=== PATIENT | female | born 1960 | race Caucasian/White ===

== ENCOUNTER 2024-04-20 12:12 | Inpatient (IN) | payer OTHER, SELFPAY ==
[2024-04-18] VITALS (11 sets, daily range): BP systolic 133–183; BP diastolic 77–112; PULSE 103–117; BMI 32.5; BMI 31.9
--- NOTE | 2024-04-18 01:26 | ED.GENMED ---
History of Present Illness
General
Chief Complaint: Alcohol Problem
Time Seen by Provider: 04/18/24 01:26
History of Present Illness
History of Present Illness:
HPI: The patient presents with a generalized unwell feeling. She states she was drinking alcohol over the weekend and also drank alcohol today. She states she has had alcohol withdrawal in the past. She also has history of low sodium. She was
admitted a few years ago and this feels very similar to that episode and she was also dehydrated at that time.
EXAM:
GENERAL: The patient appears to be in mild distress
HEENT: Moist oral mucosa
CARDIOVASCULAR: No murmurs, tachycardic heart rate, regular rhythm, No chest wall tenderness
PULMONARY: No respiratory distress, breath sounds are clear and equal
ABDOMEN: Soft with no peritoneal signs, no tenderness
NEUROLOGIC: Excellent strength all extremities, no coordination deficits, no asterixis
PSYCHIATRIC: Appropriate mental status, normal insight and judgement
EXTREMITIES: Nontender, no edema, moves all extremities equally
SKIN: Some facial erythema noted
TIME OF INITIAL ENCOUNTER: 1:30 AM
NUMBER AND COMPLEXITY OF PROBLEMS ADDRESSED AT THE ENCOUNTER
� Chronic conditions affecting care: Pressure, asthma, GERD, history of alcohol abuse but she tells me she does not drink on a daily basis
� Acute Exacerbation and/or Progression of Chronic Illness: This is an acute problem
� Differential Diagnosis includes: Alcohol withdrawal, impending DTs, hyponatremia, dehydration, CURTIS
AMOUNT AND/OR COMPLEXITY OF DATA TO BE REVIEWED AND ANALYZED
� I performed an independent evaluation of and my interpretation is:
EKG:
CT:
X-rays:
Laboratory Studies: White count 8.7, hemoglobin 15.5, MCV 85.7, platelets normal
Other:
� Review of other/old records: I reviewed records. The patient was admitted here in November 2018 with alcoholic gastritis and acute hyponatremia and had a sodium as low as 122 at that time.
� Clinical information was obtained by an independent historian: I spoke to at bedside
� Prescriptions/Medications Considered but not given:
� Further testing considered but not performed:
RISK OF COMPLICATIONS AND/OR MORBIDITY OR MORTALITY OF PATIENT MANAGEMENT
� Social determinants of health affecting care: History of alcohol abuse but she tells me she does not drink on a daily basis
� Discussion with other providers: Hospitalist, Dr. Daniel for admission at 2:30 AM
� Escalation of care including admission/observation vs risk of discharge considered: The patient CIWA score is 9. I have given her Ativan. She was also given IV fluids. Hemoglobin 15.5�she may be somewhat dehydrated.
Although MCV is normal, it is documented in her chart that she has a history of alcohol abuse. Although sodium is only slightly low which I suspect is related to a combination of dehydration and alcoholism, she also has a low potassium. I have
ordered both saline and potassium. She has been feeling nauseated and I gave her Zofran.
Past History
Past History
ED Past Medical History: Asthma, GERD, HTN and Other (IBS, frequent UTIs)
Social History
Tobacco: Non-smoker
Alcohol: Occasional (in)
Drug: None
Personal:
Phy Exam
Physical Exam
Physical Exam:
See HPI
Scores
Withdrawal Assessment of Alcohol
Withdrawal Assessment Completed?: Yes
Nausea and Vomiting: Mild nausea with no vomiting
Tactile Disturbances: Mild itching, pins and needles, burning or numbness
Tremor: Not visible, but can be felt fingertip to fingertip
Auditory Disturbances: Not present
Paroxysmal Sweats: No sweat visible
Visual Disturbances: Not present
Anxiety: Mild anxiety
Headache, Fullness in Head: Very mild
Agitation: Moderately fidgety and restless
Orientation and clouding of sensorium: Oriented and can do serial additions
Total CIWA Score: 10
Alcohol Withdrawal Medication Recommendation: Equal to MSAS Score 5-7. Lorazepam 1mg IV or PO NOW & re-assess q2hrs
Course
Orders/Labs/Results
Orders:
Orders
04/18/24 01:26
0.9% Sodium Chloride 1000 ml [Nss] 1,000 ml IV BOLUS
04/18/24 01:32
Ondansetron Injectable [Zofran] 4 mg IV NOW STA
04/18/24 01:33
Lorazepam [Ativan] 1 mg IV NOW STA
04/18/24 01:39
Famotidine [Pepcid] 20 mg IV NOW STA
04/18/24 01:47
Alcohol Urgent
Complete Blood Count/With Diff Urgent
Comprehensive Metabolic Panel Urgent
Lipase Urgent
Magnesium Urgent
04/18/24 02:12
Potassium Chloride [KCl] 40 meq 0.9% Sodium Chloride 250 ml [Nss] 250 ml IV NOW
04/18/24 02:20
Potassium Chloride [KCl] 40 meq 0.9% Sodium Chloride 250 ml [Nss] 250 ml IV NOW
Abnormal Lab Results
04/18/24
01:47
MCH 32.0 H pg
(27.0-31.0)
MCHC 37.3 H g/dL
(33.0-37.0)
RDW 11.2 L %
(11.5-14.5)
Absolute Monos (auto) 1.2 H 10^3/uL
(0.1-0.6)
Lymphocytes % 16.3 L %
(20.5-51.1)
Monocytes % 13.6 H %
(1.7-9.3)
Sodium 127 L mmol/L
(135-145)
Potassium 3.2 L mmol/L
(3.5-5.1)
Chloride 86 L mmol/L
(98-107)
Carbon Dioxide 20 L mmol/L
(22-30)
Creatinine 0.5 L mg/dL
(0.6-1.0)
Glucose 126 H mg/dl
(70-99)
Calcium 10.4 H mg/dl
(8.4-10.2)
AST 44 H U/L
(14-36)
ALT 48 H U/L
(0-35)
Alkaline Phosphatase 139 H U/L
(38-126)
Albumin 5.1 H g/dl
(3.5-5.0)
04/18/24 01:47
04/18/24 01:47
Vital Signs
Initial and Last Documented VS:
Initial Vital Signs
Temp Pulse Resp BP Pulse Ox
100.0 F 119 20 183/112 95
04/18/24 00:36 04/18/24 00:36 04/18/24 00:36 04/18/24 00:36 04/18/24 00:36
Last Documented Vital Signs
Temp Pulse Resp BP Pulse Ox
98.2 F 105 15 168/83 96
04/18/24 01:32 04/18/24 01:32 04/18/24 01:32 04/18/24 01:32 04/18/24 01:32
*Critical Care Note
Total Time (30-74mins, 75-104mins- exclusive of procedures): Not Applicable
ED Attending Note
-
Portions of this chart may have been created with voice recognition software.� Occasional wrong word or��sound alike� substitutions may have occurred due to the inherent limitations of voice recognition software.
Discharge Plan
Departure
Patient Disposition: Admit
Date of Disposition: 04/18/24
Time of Disposition: 02:24
Presentation/result/management discussed w/ accepting MD/DO: Hospitalist
Discharge Problem:
Acute hyponatremia
Prescriptions:
No Action
amlodipine 10 mg Tablet
10 mg PO DAILY
omeprazole 20 mg Capsule,Delayed Release(Dr/Ec)
20 mg PO DAILY
loratadine [Claritin] 10 mg Tablet
10 mg PO DAILY
rosuvastatin [Crestor] 5 mg Tablet
5 mg PO HS
duloxetine [Cymbalta] 30 mg Capsule,Delayed Release(Dr/Ec)
30 mg PO DAILY
Interventions
Interventions:
*Risk Screen - Suicide Last Done: 04/18/24 00:36
*General Assessment Last Done: 04/18/24 00:36
*Neglect/Abuse Screening Last Done: 04/18/24 01:45
ED- Fall Risk Assessment Last Done: 04/18/24 02:01
*ED COVID-19 Vaccine History Last Done: 04/18/24 02:01
ED- Neurological Assessment Last Done: 04/18/24 01:45
ED-Psychological Assessment Last Done: 04/18/24 01:45
Discharge Date and Time
Print Language: KAZAKH
[2024-04-18] MEDS: ZOFRAN 4 MG IV (01:52)
[2024-04-18] MEDS: ATIVAN 1 MG IV (01:52)
[2024-04-18 01:53] LABS: % Basophils 0.5 % (0-2); % Eosinophils 2.7 % (0-6); % Immature Granulocytes 0.5 % (0-0.5); % Lymphocytes 16.3 % (20.5-51.1); % Monocytes 13.6 % (1.7-9.3); % Neutrophils 66.4 % (42.2-75.2); Absolute Eosinophils 0.2 10^3/uL (0-0.7); Absolute Lymphocytes 1.4 10^3/uL (1.2-3.4); Absolute Monocytes 1.2 10^3/uL (0.1-0.6); Absolute Neutrophils 5.8 10^3/uL (1.4-6.5); Hematocrit 41.5 % (37.0-47.0); Hemoglobin 15.5 g/dL (12.0-16.0); Mean Corp Hgb Conc. 37.3 g/dL (33.0-37.0); Mean Corpuscular Volume 85.7 fL (81.0-99.0); Mean Platelet Volume 9.4 fL (7.4-10.4); Nucleated Red Blood Cells % 0 %; Platelet Count 293 10^3/uL (130-400); Red Blood Cell Count 4.84 10^6/uL (4.20-5.40); Red Cell Dist. Width 11.2 % (11.5-14.5); White Blood Cell Count 8.7 10^3/uL (4.8-10.8)
[2024-04-18] MEDS: PEPCID 20 MG IV (01:53)
[2024-04-18] MEDS: NSS 1000 IV ×4 (01:53→23:09)
[2024-04-18 02:08] LABS: ALT (SGPT) 48 U/L (0-35); AST (SGOT) 44 U/L (14-36); Albumin 5.1 g/dl (3.5-5.0); Alcohol 18 mg/dl; Alkaline Phosphatase 139 U/L (38-126); Blood Urea Nitrogen 7 mg/dl (7-17); Calcium 10.4 mg/dl (8.4-10.2); Carbon Dioxide 20 mmol/L (22-30); Chloride 86 mmol/L (98-107); Estimated Creatinine Clearance 92 ml/min; Glucose 126 mg/dl (70-99); Lipase 65 U/L (23-300); Magnesium 1.6 mg/dl (1.6-2.3); Potassium 3.2 mmol/L (3.5-5.1); Sodium 127 mmol/L (135-145); Total Bilirubin 1.2 mg/dl (0.2-1.3); Total Protein 7.8 g/dl (6.3-8.2); eGFR > 60.00
[2024-04-18] MEDS: KCL 270 MEQ IV (02:44)
--- NOTE | 2024-04-18 03:59 | HPS.HSE ---
Family Physician
-
Family Physician: Delaney Milligan
Chief Complaint
-
Nausea, anxiety and lightheadedness
History of Present Illness
This is 63-year-old with past medical history of hypertension, anxiety, hyperlipidemia and history of alcohol dependence who presents to the emergency department with anxiety, lightheadedness dizziness and nausea in the setting of acute alcohol
binge.
Patient reports that she drinks alcohol on the weekends. She reported that on Wednesday she had at least 4 cans of light beer and likely significantly more than that as she was not doing aware of how much she was drinking. The following day on
Wednesday she had at least 8 cans of light beer. The following morning woke she felt shaky and when she came home she drank in about 2 counseled flight [place]. However this did not improve the shakiness she started getting nauseous and decided come to
the emergency department. Patient felt anxious. She denies any abdominal pain. She denied vomiting. She denied diarrhea. Reports that her usual alcohol intake on the weekends about 4 cans on Wednesday and 4 cans on Wednesday. She denies drinking
alcohol alcohol during the week. Patient denies any fevers chills or urinary symptoms. She denies have any flank pain. She has been able to tolerate p.o. when she had dinner prior to coming to the emergency department.
On arrival in the emergency department the patient was hypertensive with a blood pressure of 150/70, she was afebrile and had a normal oxygen saturation on room air. Labs are notable for a sodium of 127 potassium of 3.2 with normal BUN and
creatinine. AST and ALT are slightly elevated at 44 and 40 respectively. Lipase within normal limits. Alcohol level was elevated.
Medical History
Past Medical History
Past Medical History: Reports HTN and Hypercholesterolemia
Additional Past Medical History:
ETOH abuse
Past Surgical History: Reports Gynocological ( x2) and Orthopedic (left toe metatarsal fusion)
Social History
Alcohol: Binge drinker
Drug: None
Personal:
Living: With Family
Employment: Employed
Family History
Family History: Not pertinent
Allergies / Home Medications
Allergies reflects when Allergies were last updated in [facility].
Home Medications with original date entered in [facility]
Allergy/Medication List:
Allergies
Allergy/AdvReac Type Severity Reaction Status Date / Time
prochlorperazine edisylate Allergy Unknown Verified 04/18/24 00:35
[From Compazine]
Sulfa (Sulfonamide Allergy Rash Verified 04/18/24 00:35
Antibiotics)
Home Medications
amlodipine 10 mg tablet 10 mg PO DAILY 04/18/24
duloxetine 30 mg capsule,delayed release (Cymbalta) 30 mg PO DAILY 04/18/24
loratadine 10 mg tablet (Claritin) 10 mg PO DAILY 04/18/24
omeprazole 20 mg capsule,delayed release 20 mg PO DAILY 04/18/24
rosuvastatin 5 mg tablet 5 mg PO HS 04/18/24
Review of Systems
-
History Source: Patient
Constitutional: Reports No Symptoms
EENT: Reports No Symptoms
Respiratory: Reports No Symptoms
Cardiac: Reports No Symptoms
Abdomen/GI: Reports Nausea
: Reports No Symptoms
Musculoskeletal: Reports No Symptoms
Skin: Reports No Symptoms
Neurological: Reports Dizzy
Endocrine: Reports No Symptoms
Hematologic/Lymphatic: Reports No Symptoms
Psych: Reports No Symptoms
Physical Exam
Vital Signs
Vital Signs
Temp Pulse Resp BP Pulse Ox
98.2 F 97 15 151/77 96
04/18/24 01:32 04/18/24 03:30 04/18/24 03:30 04/18/24 03:00 04/18/24 03:30
Physical Exam
General: Well Developed, Well Nourished, No Apparent Distress and Conversant
HEENT: NormoCephalic, Anicteric, Moist mucous membranes and Atraumatic
Respiratory: Clear
Cardiac: S1/S2, Regular Rhythm and Tachycardia
GI: Soft, Non Tender, Non Distended and Normal Bowel Sounds
Rectal: Deferred by Provider
Genito-urinary: Deferred by me
Musculoskeletal: No Clubbing, No Cyanosis and No Edema
Skin: Warm
Neuro: AO x 3, Nonfocal/grossly intact and Cranial Nerves Intact
Hematologic/Lymphatic: No Lymphadenopathy
Psych: Anxious
Laboratory Results
-
04/18/24 01:47
04/18/24 01:47
Laboratory Results
Total Bilirubin 1.2 mg/dl (0.2-1.3) 04/18/24 01:47
AST 44 U/L (14-36) H 04/18/24 01:47
ALT 48 U/L (0-35) H 04/18/24 01:47
Alkaline Phosphatase 139 U/L (38-126) H 04/18/24 01:47
Lipase 65 U/L (23-300) 04/18/24 01:47
Data Reviewed
-
Lab Data: Labs Reviewed by me
Old Records: Reviewed
Impression/Plan
-
IMPRESSION:
Patient with episode of binge drinking with acute intoxication without altered mental status likely associated with alcoholic gastritis, dehydration and beer potomania.
PLAN:
1. Hyponatremia -sodium 127. Baseline in the 130s. Patient had significant amount of light beer drinking over the weekend. She did eat some amount of food. She had no vomiting or diarrhea. So there is moderate dehydration and likely
hyponatremia for high free water intake. Patient reported similar episode few years ago in the setting of higher than normal binge drinking. This could be complicated by mild SIADH as sodium is on duloxetine.
- admit to med/surg
- s/p 1 L NS bolus in ED, given another 500 ml
- if beer related would improve with recent lack of free water intake, repeat sodium in am
- check tsh, check urine osmolality and urine sodium, expected to be low
- check orthostatics,
- IV NS for now
2. Hypokalemia - Magnesium borderline. Hypo K likely fromdehydation
- repletions of k and mag
3. ETOH - binge drinking on weekends. Low risk of withdrawal. Mild transaminitis (also on rosuvastatin)
- monitor for now
- repeat LFT as outpatient
4. HTN
- orthostatics
- continue norvasc and rosuvastatin
DVT PPX - lovenox
Code Status - full code
[2024-04-18] MEDS: NSS 500 IV (04:06)
[2024-04-18] MEDS: ATIVAN 0.5 MG IV (06:31)
[2024-04-18] MEDS: NSS (PRESERVATIVE FREE) 0.25 ML IV (06:31)
[2024-04-18] MEDS: MAGNESIUM SULFATE 102 GRAMS IV (06:32)
[2024-04-18 06:42] LABS: Blood Urea Nitrogen 6 mg/dl (7-17); Calcium 9.5 mg/dl (8.4-10.2); Carbon Dioxide 22 mmol/L (22-30); Chloride 95 mmol/L (98-107); Estimated Creatinine Clearance 91 ml/min; Glucose 127 mg/dl (70-99); Magnesium 1.8 mg/dl (1.6-2.3); Potassium 4.5 mmol/L (3.5-5.1); Sodium 132 mmol/L (135-145); eGFR > 60.00
[2024-04-18 06:46] LABS: Osmolality Serum 270 mOsm/kg (275-300)
[2024-04-18 07:23] LABS: TSH 3.98 uIU/ml (0.47-4.68)
[2024-04-18] MEDS: CLARITIN 10 MG PO (08:14)
[2024-04-18] MEDS: NORVASC 10 MG PO (08:14)
[2024-04-18] MEDS: PROTONIX 40 MG PO (08:14)
[2024-04-18] MEDS: CYMBALTA DELAYED RELEASE 30 MG PO (08:15)
[2024-04-18] MEDS: TYLENOL 650 MG PO (10:10)
--- NOTE | 2024-04-18 11:06 | CM ---
Addendum entered by Stephany Levy RN 04/18/24 15:02:
CM consult for substance abuse received. Offer resources, [facility], AA, etc. Patient declined at this time.
Original Note:
Reviewed the chart notes and spoke with the patient at the bedside. The patient is admitted under observational status. The observational letter was provided and explained. The patient had no questions with regards to the letter.
The patient resides with her spouse in a split level home with four steps to enter. The patient reports no DME/VN/SNF in the past. The patient confirmed her pharmacy of choice is the [facility]. CM continues to be available to
patient/family and is monitoring medical plan for needs at discharge.
Plan: Discharge to home when medically stable. No needs anticipated.
[2024-04-18] MEDS: FOLVITE 1 MG PO (13:56)
--- NOTE | 2024-04-18 14:30 | W.PN.HOSP.TC ---
Today's Communication/Plan
-
Alcohol withdrawal protocol
IV fluids
Follow sodium level.
Assessment / Plan
Assessment / Plan
Impression
Alcohol use disorder with risk for delirium tremens.
Acute on chronic hyponatremia.
Hypokalemia
Hypomagnesemia
Essential hypertension.
Plan:
Alcohol use disorder suspect severe with binge drinking.
Alcohol level on admission 18.
At risk for withdrawal given anxiety and unintentional tremor on exam.
Will start MSAs protocol with lorazepam and addition of oral phenobarbital.
Continue thiamine.
Monitor closely
Patient motivated to quit drinking
Further discussion and options for alcohol disorder treatment likely outpatient follow-up.
Acute on chronic hyponatremia
Sodium level 127 upon presentation (baseline low 130s)
Metabolic alkalosis.
Normal TSH.
Improving with IV hydration, currently on isotonic solution.
Check urine osmolarity and urine sodium.
Follow sodium level while on IV fluids.
Hypokalemia, hypomagnesemia improving with repletion
Essential hypertension.
Continue preadmission regimen including amlodipine.
Dyslipidemia on Crestor
Anticipated Discharge: 24 - 48 hours
Subjective/Interval History
-
Date of Service: April 18, 2024
Objective Data
-
Labs:
Laboratory Results
04/18/24
06:03
Sodium 132 L
Potassium 4.5 D
Chloride 95 L
Carbon Dioxide 22
BUN 6 L
Creatinine 0.5 L
Glucose 127 H
Calcium 9.5
Vital Signs:
Vital Signs
Temp Pulse Resp BP Pulse Ox
98.6 F 118 16 145/101 95
04/18/24 12:05 04/18/24 07:25 04/18/24 07:25 04/18/24 08:14 09/17/24 12:05
Physical Exam
-
General: Well Developed and No Apparent Distress
HEENT: Normocephalic, Atraumatic and Moist Mucous Membranes
Respiratory: Clear to Auscultation
Cardiac: Regular Rhythm and S1/S2; Negative Murmur, Rub or Gallop
GI: Soft, Nontender, Nondistended and Normal Bowel Sounds; Negative Organomegaly
Rectal: Deferred by Provider
Musculoskeletal: No Clubbing, No Cyanosis and No Edema
Skin: Negative Rash
Neuro: Awake, Alert, Oriented, AO x 3, Tremors (Mild nonintentional) and Nonfocal/Grossly Intact
[2024-04-18] MEDS: LUMINAL 97.2 MG PO ×2 (15:05→21:31)
[2024-04-18 15:18] LABS: Osmolality Urine 153 mOsm/kg (300-900)
[2024-04-18 15:28] LABS: Amphetamines Negative (Negative); Barbiturates Negative (Negative); Benzodiazepines Positive (Negative); Buprenorphine Negative (Negative); Cocaine Negative (Negative); Marijuana Negative (Negative); Methadone Negative (Negative); Methamphetamines Negative (Negative); Opiates Negative (Negative); Phencyclidine Negative (Negative); Tricyclic Antidepressants Negative (Negative)
[2024-04-18 15:31] LABS: Urine Sodium 40 mmol/L (30-90)
[2024-04-18 15:40] LABS: Fentanyl, Urine Negative (Negative)
[2024-04-18] MEDS: LOVENOX 40 MG SC (17:20)
[2024-04-18] MEDS: THIAMINE INJECTION 200 MG IV (19:57)
[2024-04-18] MEDS: CRESTOR 5 MG PO (21:30)
--- NOTE | 2024-04-19 04:17 | DOWNTIME ---
There was a [employer] Chemist Downtime on 04/19/2024 from 0100 to 04/19/2024 at 0300. Downtime documentation of patient's care, including medication administrations, has been reconciled in the electronic record per guidelines. Refer to the
patient's paper chart under the miscellaneous tab to see printed paper medication records and downtime forms.
[2024-04-19] MEDS: NSS 1000 IV (07:01)
[2024-04-19 07:41] VITALS: BP 152/90
[2024-04-19] MEDS: CLARITIN 10 MG PO (08:04)
[2024-04-19] MEDS: CYMBALTA DELAYED RELEASE 30 MG PO (08:04)
[2024-04-19] MEDS: PROTONIX 40 MG PO (08:05)
[2024-04-19] MEDS: NORVASC 10 MG PO (08:05)
[2024-04-19] MEDS: FOLVITE 1 MG PO (08:05)
[2024-04-19] MEDS: THIAMINE INJECTION 200 MG IV ×2 (08:10→19:25)
[2024-04-19] MEDS: LUMINAL 97.2 MG PO ×3 (08:10→21:43)
[2024-04-19 08:24] LABS: ALT (SGPT) 41 U/L (0-35); AST (SGOT) 45 U/L (14-36); Albumin 4.4 g/dl (3.5-5.0); Alkaline Phosphatase 111 U/L (38-126); Blood Urea Nitrogen 8 mg/dl (7-17); Calcium 8.9 mg/dl (8.4-10.2); Carbon Dioxide 23 mmol/L (22-30); Chloride 101 mmol/L (98-107); Estimated Creatinine Clearance 91 ml/min; Glucose 101 mg/dl (70-99); Potassium 4.1 mmol/L (3.5-5.1); Sodium 140 mmol/L (135-145); Total Bilirubin 0.9 mg/dl (0.2-1.3); Total Protein 6.8 g/dl (6.3-8.2); eGFR > 60.00
--- NOTE | 2024-04-19 13:59 | CM ---
Reviewed the chart notes. CM continues to be available to patient/family and is monitoring medical plan for needs at discharge.
Plan: Discharge to home when medically stable.
--- NOTE | 2024-04-19 14:50 | W.PN.HOSP.TC ---
Today's Communication/Plan
-
Alcohol withdrawal, hopefully aborted DT
Continue MSAs with phenobarbital taper.
Improved hyponatremia and hypokalemia.
Assessment / Plan
Assessment / Plan
Impression
Alcohol use disorder with risk for delirium tremens.
Acute on chronic hyponatremia.
Hypokalemia
Hypomagnesemia
Essential hypertension.
Plan:
Alcohol use disorder suspect severe with binge drinking.
Alcohol level on admission 18.
At risk for withdrawal given anxiety and unintentional tremor on exam.
Will start MSAs protocol with lorazepam and addition of oral phenobarbital.
Continue thiamine.
Monitor closely
Patient motivated to quit drinking
Further discussion and options for alcohol disorder treatment likely outpatient follow-up.
Acute on chronic hyponatremia
Sodium level 127 upon presentation (baseline low 130s)
Metabolic alkalosis.
Normal TSH.
Improving with IV hydration, currently on isotonic solution.
Check urine osmolarity and urine sodium.
Follow sodium level while on IV fluids.
Hypokalemia, hypomagnesemia improving with repletion
Essential hypertension.
Continue preadmission regimen including amlodipine.
Dyslipidemia on Crestor
Anticipated Discharge: 24 - 48 hours
Subjective/Interval History
-
Date of Service: April 19, 2024
Objective Data
-
Labs:
Laboratory Results
04/19/24
06:17
Sodium 140 D
Potassium 4.1
Chloride 101
Carbon Dioxide 23
BUN 8
Creatinine 0.5 L
Glucose 101 H
Calcium 8.9
Total Bilirubin 0.9
AST 45 H
ALT 41 H
Alkaline Phosphatase 111
Vital Signs:
Vital Signs
Temp Pulse Resp BP Pulse Ox
98.3 F 85 18 152/90 95
04/19/24 07:41 04/19/24 08:05 04/19/24 07:41 04/19/24 08:05 04/19/24 07:41
I&O
04/18/24 04/19/24 04/20/24
06:59 06:59 06:59
Intake Total 4840 / 4840 750 / 750
Balance 4840 / 4840 750 / 750
Physical Exam
-
General: Well Developed and No Apparent Distress
HEENT: Normocephalic, Atraumatic and Moist Mucous Membranes
Respiratory: Clear to Auscultation
Cardiac: Regular Rhythm and S1/S2; Negative Murmur, Rub or Gallop
GI: Soft, Nontender, Nondistended and Normal Bowel Sounds; Negative Organomegaly
Rectal: Deferred by Provider
Musculoskeletal: No Clubbing, No Cyanosis and No Edema
Skin: Negative Rash
Neuro: Awake, Alert, Oriented, AO x 3 and Nonfocal/Grossly Intact; Negative Tremors
[2024-04-19 15:10] VITALS: BP 147/85
[2024-04-19] MEDS: LOVENOX SC ×2 (16:39→16:41)
[2024-04-19] MEDS: CRESTOR 5 MG PO (21:43)
[2024-04-19 23:08] VITALS: BP 151/91
[2024-04-20 07:32] VITALS: BP 146/98
[2024-04-20 07:42] LABS: ALT (SGPT) 43 U/L (0-35); AST (SGOT) 45 U/L (14-36); Albumin 4.5 g/dl (3.5-5.0); Alkaline Phosphatase 103 U/L (38-126); Blood Urea Nitrogen 10 mg/dl (7-17); Calcium 9.9 mg/dl (8.4-10.2); Carbon Dioxide 25 mmol/L (22-30); Chloride 98 mmol/L (98-107); Estimated Creatinine Clearance 91 ml/min; Glucose 111 mg/dl (70-99); Potassium 3.8 mmol/L (3.5-5.1); Sodium 137 mmol/L (135-145); Total Bilirubin 0.9 mg/dl (0.2-1.3); eGFR > 60.00
[2024-04-20] MEDS: CYMBALTA DELAYED RELEASE 30 MG PO (08:07)
[2024-04-20] MEDS: CLARITIN 10 MG PO (08:07)
[2024-04-20] MEDS: PROTONIX 40 MG PO (08:07)
[2024-04-20] MEDS: NORVASC 10 MG PO (08:07)
[2024-04-20] MEDS: FOLVITE 1 MG PO (08:08)
[2024-04-20] MEDS: LUMINAL 97.2 MG PO (08:09)
[2024-04-20] MEDS: THIAMINE INJECTION 200 MG IV (08:10)
--- NOTE | 2024-04-20 10:57 | PTCARENOTE ---
Pt called, let this RN know that she is not willing to take any more of the phenobarbital taper and that she is requiring that she goes home today. made aware, no new orders at this time.
--- NOTE | 2024-04-20 11:12 | CM ---
Reviewed the chart notes and spoke with the patient at the bedside. Patient seen ambulating in hallway ad quin. Per patient, she anticipates being discharged to home today with no anticipated needs. Patient's spouse will provide transportation.
CM continues to be available to patient/family and is monitoring medical plan for needs at discharge.
Plan: Discharge to home when medically stable.
[2024-04-20 11:32] VITALS: BP 150/91
--- NOTE | 2024-04-20 12:33 | W.DS.TRANS ---
DC Summary - Logistics Supervisor
-
Discharge Instructions:
Discharge Diagnosis/Procedures Alcohol use disorder with risk for delirium
tremens.
Acute on chronic hyponatremia.
Hypokalemia
Hypomagnesemia
Essential hypertension.
Diet Regular
Instructions:
Stand-Alone Forms:
Changes to Home Medications: No
Discharge Medications:
DC Medications w/original date entered in [facility]
amlodipine 10 mg tablet 10 mg PO DAILY Blood Pressure 04/18/24
duloxetine 30 mg capsule,delayed release (Cymbalta) 30 mg PO DAILY Mental Health/Anxiety 04/18/24
loratadine 10 mg tablet (Claritin) 10 mg PO DAILY Allergies 04/18/24
omeprazole 20 mg capsule,delayed release 20 mg PO DAILY Gastrointestinal Issue 04/18/24
rosuvastatin 5 mg tablet 5 mg PO HS High Cholesterol 04/18/24
Home Medication Changes
Pending Results: No
== END 2024-04-20 15:19 | disposition home or self-care (01) | DRG 897 ==
LOC: 2 NORTH 12:12
PROVIDERS: ADMITTING PHYSICIAN Internal Medicine; ATTENDING PHYSICIAN Internal Medicine; EMERGENCY PHYSICIAN Emergency Medicine; FAMILY PHYSICIAN Internal Medicine
DX: F10.229 Alcohol dependence with intoxication, unspecified (principal); E87.1 Hypo-osmolality and hyponatremia; E87.4 Mixed disorder of acid-base balance; I10 Essential (primary) hypertension; J45.909 Unspecified asthma, uncomplicated; Y90.0 Blood alcohol level of less than 20 mg/100 ml; E86.0 Dehydration; E87.6 Hypokalemia; F41.9 Anxiety disorder, unspecified; K58.8 Other irritable bowel syndrome; K21.9 Gastro-esophageal reflux disease without esophagitis; E78.00 Pure hypercholesterolemia, unspecified; R25.1 Tremor, unspecified; Z79.899 Other long term (current) drug therapy; Z87.440 Personal history of urinary (tract) infections; Z88.2 Allergy status to sulfonamides; Z88.8 Allergy status to other drugs, medicaments and biological substances
CPT/HCPCS: 80048; 80053; 80306; 80307; 82077; 83690; 83735; 83930; 83935; 84300; 84443; 85025; 96361; 96374; 96375; 99285